=== PATIENT | male | born 1950 | race Two or more races ===

== ENCOUNTER 2019-05-06 11:01 | Inpatient (IN) | payer MEDICARE ==
[~2019-05-06] VITALS: Ht 203.2 cm; Wt 81.6 kg
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
[2019-05-06 11:10] VITALS: BP 149/101
[2019-05-06] MEDS ORDERED: Morphine Sulfate 4mg/ml Inj (IV USE ONLY) IVP ONE (11:30)
[2019-05-06] MEDS ORDERED: Bacitracin Oint UD TOPIC ONE (11:30)
[2019-05-06 12:04] LABS: BASOPHILS % (AUTO) 0.7 % (0.0-2.0); EOSINOPHILS % (AUTO) 0.1 % (0.0-3.0); HEMATOCRIT 45.2 % (42.0-52.0); HEMOGLOBIN 14.8 G/DL (14.2-18.0); LYMPHOCYTES % (AUTO) 17.6 % (20.0-45.0); MEAN CORPUSCULAR VOLUME 81 FL (80-99); NEUTROPHILS % (AUTO) 75.7 % (45.0-75.0); PLATELET COUNT 448 K/UL (150-450); RED BLOOD COUNT 5.59 M/UL (4.70-6.10); RED CELL DISTRIBUTION WIDTH 14.5 % (11.6-14.8); WHITE BLOOD COUNT 10.2 K/UL (4.8-10.8)
--- NOTE | 2019-05-06 12:10 | NUR ---
ED Nurse Note: PT UNABLE TO GIVE URINE SAMPLE. PT ROVIDED WITH WATER. DR SHOAIB PRINCE WITH ORAL INTAKE.
[2019-05-06 12:14] LABS: ANION GAP 12 mmol/L (5-15); BLOOD UREA NITROGEN 21 mg/dL (7-18); CALCIUM 9.7 MG/DL (8.5-10.1); CARBON DIOXIDE 23 MMOL/L (21-32); CHLORIDE 97 MMOL/L (98-107); CREATININE 1.3 MG/DL (0.55-1.30); POTASSIUM 3.8 MMOL/L (3.5-5.1); SODIUM 132 MMOL/L (136-145)
[2019-05-06 12:28] LABS: ALANINE AMINOTRANSFERASE 37 U/L (12-78); ALBUMIN 3.9 G/DL (3.4-5.0); ALBUMIN/GLOBULIN RATIO 0.9 (1.0-2.7); ALKALINE PHOSPHATASE 142 U/L (46-116); ASPARTATE AMINO TRANSFERASE 28 U/L (15-37); BILIRUBIN,TOTAL 0.4 MG/DL (0.2-1.0); CREATINE KINASE 156 U/L (26-308)
--- NOTE | 2019-05-06 12:58 | NUR ---
ED Nurse Note: PT REFSUED CATHETER FOR URINE. STILL NOT ABLE TO PROVIDE SAMPLE AT THIS TIME.
--- NOTE | 2019-05-06 13:00 | NUR ---
ED Nurse Note: DR CRAMER OKAY TO BRING PT UP ON TELEMETRY WITHOUT URINE SPECIMEN.
[2019-05-06] MEDS: Morphine Sulfate 4mg/ml Inj (IV USE ONLY) IVP PRN ×3 (13:05→21:24)
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
[2019-05-06 13:10] VITALS: BP 145/90
[2019-05-06] MEDS ORDERED: Albuterol/Ipratropium 3ml neb HHN PRN (14:00)
[2019-05-06] MEDS ORDERED: Mylanta II UD 30ml ORAL PRN (14:00)
[2019-05-06] MEDS ORDERED: Morphine Sulfate 2mg/ml Inj(IV/IM USE ONLY) IVP PRN (14:00)
[2019-05-06] MEDS ORDERED: Nitroglycerin Subl 0.4mg tab SL PRN (14:00)
[2019-05-06] MEDS ORDERED: LORazepam Inj 2mg/ml 1ml IV PRN (14:00)
[2019-05-06] MEDS ORDERED: Miralax 17gm pkt ORAL PRN (14:00)
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
[2019-05-06] MEDS ORDERED: OXYCONTIN80 MG ORAL (14:09)
[2019-05-06] MEDS ORDERED: AMBIEN5 MG ORAL (14:09)
[2019-05-06] MEDS ORDERED: NEURONTIN100 MG ORAL (14:09)
--- NOTE | 2019-05-06 14:25 | NUR ---
ED Nurse Note: REPORT GIVEN TO PORSCHE EGAN RN OF TELEMETRY UNIT.
[2019-05-06] MEDS ORDERED: Hydromorphone 0.5mg/0.5ml inj IVP ONE (14:45)
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
--- NOTE | 2019-05-06 17:00 | NUR ---
NURSE NOTES: Pt c/o pain to Lt shoulder,Morphin Sulfate 4 mg IVP given,will continue to monitor pt.
--- NOTE | 2019-05-06 17:30 | NUR ---
NURSE NOTES: Pt c/o nausea,pt attempting to vomit,but only saliva came out.Dinner tray served .pt ate well.
--- NOTE | 2019-05-06 18:40 | History & Physical ---
History and Physical History & Physicial Dictated for Int Med-Dr Jackson no. [id number]. Nathan Hoffmann MD May 06, 2019 18:40
--- NOTE | 2019-05-06 19:15 | NUR ---
HAND-OFF: Report given to Ryan Oliva RN.Pt resting quietly in bed watching TV,no distress presented.
--- NOTE | 2019-05-06 19:18 | NUR ---
NURSE NOTES: Received report. Patient is awake, and alert with no distress/SOB noted at this time. Left hand IV site is, dry and intact. Denies pain at this time. Bed in low position and locked, Call light within reach. Will continue to monitor and follow plan of care.
[2019-05-06] MEDS: Heparin 5000 units/ml inj SUBQ SCH (21:24)
[2019-05-06 22:31] LABS: APPEARANCE,URINE SLIGHTLY CLOUDY; BILIRUBIN, URINE NEGATIVE (NEGATIVE); GLUCOSE, URINE (UA) NEGATIVE (NEGATIVE); KETONES,URINE 1+ (NEGATIVE); LEUKOCYTE ESTERASE ,URINE NEGATIVE (NEGATIVE); NITRITE,URINE NEGATIVE (NEGATIVE); PH,URINE 6 (4.5-8.0); PROTEIN,URINE 2+ (NEGATIVE); UROBILINOGEN,URINE NORMAL MG/DL (0.0-1.0)
[2019-05-06 22:33] LABS: COLOR,URINE YELLOW
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
[2019-05-07] VITALS: BP 131/68
[2019-05-07] MEDS: Morphine Sulfate 4mg/ml Inj (IV USE ONLY) IVP PRN ×4 (01:24→15:35)
[2019-05-07 04:00] VITALS: BP 134/76
--- NOTE | 2019-05-07 07:38 | NUR ---
HAND-OFF: Report given to Destinee BAIRES.
--- NOTE | 2019-05-07 07:40 | NUR ---
NURSE NOTES: Received report from DEQUAN Mishra. Pt in bed, awake, talkative, getting labs drawn by obstetrics nurse, no complaints of pain, no apparent distress, call light within reach.
[2019-05-07 08:00] VITALS: BP 148/89
[2019-05-07 08:19] LABS: BASOPHILS % (AUTO) 0.7 % (0.0-2.0); HEMOGLOBIN 13.8 G/DL (14.2-18.0); LYMPHOCYTES % (AUTO) 23.1 % (20.0-45.0); MEAN CORPUSCULAR VOLUME 82 FL (80-99); MONOCYTES % (AUTO) 8.3 % (1.0-10.0); NEUTROPHILS % (AUTO) 67.9 % (45.0-75.0); PLATELET COUNT 369 K/UL (150-450); RED BLOOD COUNT 5.02 M/UL (4.70-6.10); RED CELL DISTRIBUTION WIDTH 14.5 % (11.6-14.8); WHITE BLOOD COUNT 11.2 K/UL (4.8-10.8)
[2019-05-07 08:46] LABS: ALANINE AMINOTRANSFERASE 30 U/L (12-78); ALBUMIN 3.6 G/DL (3.4-5.0); ALBUMIN/GLOBULIN RATIO 0.8 (1.0-2.7); ALKALINE PHOSPHATASE 134 U/L (46-116); ANION GAP 11 mmol/L (5-15); ASPARTATE AMINO TRANSFERASE 27 U/L (15-37); BILIRUBIN,TOTAL 0.5 MG/DL (0.2-1.0); BLOOD UREA NITROGEN 28 mg/dL (7-18); CALCIUM 9.3 MG/DL (8.5-10.1); CARBON DIOXIDE 22 MMOL/L (21-32); CHLORIDE 99 MMOL/L (98-107); CHOLESTEROL 252 MG/DL (< 200); HDL CHOLESTEROL 51 MG/DL (40-60); POTASSIUM 4.4 MMOL/L (3.5-5.1); SODIUM 132 MMOL/L (136-145); TRIGLYCERIDES 146 MG/DL (30-150)
[2019-05-07] MEDS: Heparin 5000 units/ml inj SUBQ SCH ×2 (09:59→21:35)
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
[2019-05-07 12:00] VITALS: BP 126/97
--- NOTE | 2019-05-07 12:50 | NUR ---
NURSE NOTES: Notified Dr. Nilda Jimenez 132, no new orders
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
[2019-05-07] MEDS: oxyCONTIN 20mg tab ORAL SCH ×2 (14:02→21:30)
--- NOTE | 2019-05-07 14:26 | Internal Med Progress Note ---
Subjective Physician Name Scooby Jackson Attending Physician Scooby Jackson MD Current Medications Medications (Trade) Dose Ordered Sig/Jesse Route PRN Reason Start Time Stop Time Status Last Admin Dose Admin Acetaminophen (Tylenol) 650 mg Q4H PRN ORAL fever 05/06/19 14:00 06/05/19 13:59 05/07/19 11:37 Al Hydroxide/Mg Hydroxide (Mylanta II) 30 ml Q6H PRN ORAL dyspepsia 05/06/19 14:00 06/05/19 13:59 Albuterol/ Ipratropium (Albuterol/ Ipratropium) 3 ml Q4H PRN HHN Shortness of Breath 05/06/19 14:00 05/11/19 13:59 Clonidine HCl (Catapres Tab) 0.1 mg Q4H PRN ORAL For High Blood Pressure 05/06/19 14:00 06/05/19 13:59 Dextrose (Dextrose 50%) 25 ml Q30M PRN IV Hypoglycemia 05/06/19 14:00 06/05/19 13:59 Dextrose (Dextrose 50%) 50 ml Q30M PRN IV Hypoglycemia 05/06/19 14:00 06/05/19 13:59 Heparin Sodium (Porcine) (Heparin 5000 units/ml) 5,000 units EVERY 12 HOURS SUBQ 05/06/19 21:00 06/05/19 20:59 05/07/19 09:59 Lorazepam (Ativan 2mg/ml 1ml) 0.5 mg Q4H PRN IV For Anxiety 05/06/19 14:00 05/13/19 13:59 Mirtazapine (Remeron) 7.5 mg BEDTIME ORAL 05/07/19 21:00 06/06/19 20:59 Morphine Sulfate (Morphine Sulfate) 1 mg Q4H PRN IVP For Pain 7-10 05/06/19 14:00 05/13/19 13:59 Morphine Sulfate (Morphine Sulfate) 4 mg Q4H PRN IVP For Pain 05/06/19 13:00 05/13/19 12:59 05/07/19 09:58 Nitroglycerin (Ntg) 0.4 mg Q5M X 3 DOSES PRN SL Prn Chest Pain 05/06/19 14:00 06/05/19 13:59 Ondansetron HCl (Zofran) 4 mg Q6H PRN IVP Nausea & Vomiting 05/06/19 14:00 06/05/19 13:59 Oxycodone HCl (OxyCONTIN) 80 mg EVERY 8 HOURS ORAL 05/07/19 14:00 05/14/19 13:59 05/07/19 14:02 Polyethylene Glycol (Miralax) 17 gm HSPRN PRN ORAL Constipation 05/06/19 14:00 06/05/19 13:59 Temazepam (Restoril) 15 mg HSPRN PRN ORAL Insomnia 05/06/19 14:00 05/13/19 13:59 05/06/19 22:49 Allergies: Coded Allergies: No Known Allergies (Unverified , 05/06/19) Subjective Awake, alert, responsive, no acute distress, complained about chest wall pain, denies any shortness of breath. Objective Last Vital Signs Date Time Temp Pulse Resp B/P (MAP) Pulse Ox O2 Delivery O2 Flow Rate FiO2 05/07/19 12:07 98.6 05/07/19 12:00 94 18 126/97 (107) 96 05/07/19 09:00 Room Air 05/07/19 07:03 21 Laboratory Tests Test 05/06/19 16:45 05/06/19 22:00 05/07/19 07:20 Hepatitis B Surface Antibody, Quant <3.1 mIU/mL (Immunity>9.9) Hepatitis C Antibody 0.3 s/co ratio (0.0-0.9) Urine Color Yellow Urine Appearance Slightly cloudy Urine pH 6 (4.5-8.0) Urine Specific Hunt 1.020 (1.005-1.035) Urine Protein 2+ (NEGATIVE) H Urine Glucose (UA) Negative (NEGATIVE) Urine Ketones 1+ (NEGATIVE) H Urine Blood 1+ (NEGATIVE) H Urine Nitrite Negative (NEGATIVE) Urine Bilirubin Negative (NEGATIVE) Urine Urobilinogen Normal MG/DL (0.0-1.0) Urine Leukocyte Esterase Negative (NEGATIVE) Urine RBC 0-2 /HPF (0 - 0) H Urine WBC 0-2 /HPF (0 - 0) Urine Squamous Epithelial Cells None /LPF (NONE/OCC) Urine Bacteria Few /HPF (NONE) Urine Hyaline Casts 5-10 /LPF (NONE) H Urine Opiates Screen Positive (NEGATIVE) H Urine Barbiturates Screen Negative (NEGATIVE) Phencyclidine (PCP) Screen Negative (NEGATIVE) Urine Amphetamines Screen Negative (NEGATIVE) Urine Benzodiazepines Screen Negative (NEGATIVE) Urine Cocaine Screen Negative (NEGATIVE) Urine Marijuana (THC) Screen Negative (NEGATIVE) White Blood Count 11.2 K/UL (4.8-10.8) H Red Blood Count 5.02 M/UL (4.70-6.10) Hemoglobin 13.8 G/DL (14.2-18.0) L Hematocrit 41.0 % (42.0-52.0) L Mean Corpuscular Volume 82 FL (80-99) Mean Corpuscular Hemoglobin 27.4 PG (27.0-31.0) Mean Corpuscular Hemoglobin Concent 33.6 G/DL (32.0-36.0) Red Cell Distribution Width 14.5 % (11.6-14.8) Platelet Count 369 K/UL (150-450) Mean Platelet Volume 5.4 FL (6.5-10.1) L Neutrophils (%) (Auto) 67.9 % (45.0-75.0) Lymphocytes (%) (Auto) 23.1 % (20.0-45.0) Monocytes (%) (Auto) 8.3 % (1.0-10.0) Eosinophils (%) (Auto) 0.0 % (0.0-3.0) Basophils (%) (Auto) 0.7 % (0.0-2.0) Prothrombin Time 10.7 SEC (9.30-11.50) Prothromb Time International Ratio 1.0 (0.9-1.1) Activated Partial Thromboplast Time 27 SEC (23-33) Sodium Level 132 MMOL/L (136-145) L Potassium Level 4.4 MMOL/L (3.5-5.1) Chloride Level 99 MMOL/L (98-107) Carbon Dioxide Level 22 MMOL/L (21-32) Anion Gap 11 mmol/L (5-15) Blood Urea Nitrogen 28 mg/dL (7-18) H Creatinine 1.0 MG/DL (0.55-1.30) Estimat Glomerular Filtration Rate > 60 mL/min (>60) Glucose Level 170 MG/DL (74-106) H Calcium Level 9.3 MG/DL (8.5-10.1) Total Bilirubin 0.5 MG/DL (0.2-1.0) Aspartate Amino Transf (AST/SGOT) 27 U/L (15-37) Alanine Aminotransferase (ALT/SGPT) 30 U/L (12-78) Alkaline Phosphatase 134 U/L (46-116) H Total Protein 7.9 G/DL (6.4-8.2) Albumin 3.6 G/DL (3.4-5.0) Globulin 4.3 g/dL Albumin/Globulin Ratio 0.8 (1.0-2.7) L Triglycerides Level 146 MG/DL (30-150) Cholesterol Level 252 MG/DL (< 200) H LDL Cholesterol 171 mg/dL (<100) H HDL Cholesterol 51 MG/DL (40-60) Cholesterol/HDL Ratio 4.9 (3.3-4.4) H Thyroid Stimulating Hormone (TSH) 1.522 uiU/mL (0.358-3.740) Intake and Output 05/06/19 05/07/19 19:00 07:00 Intake Total 580 ml Output Total 600 ml Balance 580 ml -600 ml Intake Oral 580 ml Output Urine Total 600 ml Objective General: No acute distress, awake and alert HEENT: NCAT, sclera anicteric, PERRL, EOMI. Neck: Supple, no significant jugular venous distention, Lungs: Good inspiratory effort, decreased air at the bases, ecchymosis on the chest wall was noted, tender to touch over the chest wall, no Wheeze or Rales. Heart: Regular rate and rhythm, normal S1/S2, no murmur. Abdomen: soft, nontender, nondistended. Normoactive bowel sounds. / Rectal: Refused and deferred. Extremities: No Cyanosis , clubbing or edema, varicose veins bilateral lower extremity. Neuro: A&O x 3, Able to move all extremities Skin: warm, no rash. Psych: Normal mood and affect Assessment/Plan Assessment/Plan 1. Syncopal episode. 2. Hypertension 3. Chronic low back pain, TREATMENT: Monitor laboratory Pain control Monitor blood pressure closely Follow-up with cardiology recommendation PT mobility Out of bed to chair CODE STATUS full code DVT prophylaxis with heparin subcu Scooby Jackson MD May 07, 2019 14:26
[2019-05-07 16:00] VITALS: BP 124/80
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
--- NOTE | 2019-05-07 17:46 | Diagnostic Imaging Report ---
Indication: Dyspnea Comparison: None A single view chest radiograph was obtained. Findings: Ill-defined density at the right lung base may be infiltrate or atelectasis. Small pleural effusion is also suspected. Heart is enlarged. Bones are unremarkable. IMPRESSION: Infiltrate versus atelectasis right lung base. Small right pleural effusion also suspected.
--- NOTE | 2019-05-07 17:47 | Cardiology Report ---
APPROVED REPORT EXAM: Two-dimensional and M-mode echocardiogram with Doppler and color Doppler. INDICATION LV FUNCTION M-Mode DIMENSIONS IVSd1.2 (0.7-1.1cm)Left Atrium (MM)3.8 (1.6-4.0cm) LVDd3.9 (3.5-5.6cm)Aortic Root4.1 (2.0-3.7cm) PWd1.2 (0.7-1.1cm)Aortic Cusp Exc.1.6 (1.5-2.0cm) IVSs1.9 cm LVDs2.5 (2.5-4.0cm) PWs1.4 cm Other Information Quality : Poor Technically limited study due to body habitus. Technically difficult study due to poor acoustical windows. Normal left ventricular chamber size, systolic function and wall motion to extent visualized. Left ventricular ejection fraction estimated to be 55 %. Study quality precludes accurate assessment of regional wall motion. No evidence of left ventricular hypertrophy . No evidence of pericardial effusion. Mild left atrial enlargement . Right cardiac chamber sizes are within normal limits. Aortic valve calcification with decreased cusp excursion c/w aortic stenosis. Mildly thickened mitral valve leaflets with normal excursion. Mild mitral annulus and aortic root calcification. Pulmonic valve not well visualized. IVC in normal size with physiologic collapse . A color flow and spectral Doppler study was performed and revealed: No aortic insufficiency . Mitral diastolic velocities suggest reduced left ventricular relaxation c/w mild LV diastolic dysfunction (Grade I ) Trace mitral regurgitation. Trace tricuspid regurgitation. Tricuspid systolic velocities suggests peak right ventricular systolic pressure of 15mmHg.
--- NOTE | 2019-05-07 18:14 | NUR ---
NURSE NOTES: Pt asking for Ambien to sleep tonight. Notified Dr. Jackson of pt's request
--- NOTE | 2019-05-07 19:25 | NUR ---
HAND-OFF: Report given to DEQUAN Mishra.
--- NOTE | 2019-05-07 19:26 | NUR ---
NURSE NOTES: Received report from Yolanda. Patient is awake, and alert with no distress/SOB noted at this time. Left hand IV site is, dry and intact. Denies pain at this time. Bed in low position and locked, Call light within reach. Will continue to monitor and follow plan of care.
[2019-05-07] MEDS ORDERED: Zolpidem 5mg tab ORAL PRN (19:30)
[2019-05-07 20:00] VITALS: BP 124/88
--- NOTE | 2019-05-07 20:21 | NUR ---
Per request DMV form(lapse of consciousness) completed (for yesterdays order) and faxed to [phone].
[2019-05-08] VITALS: BP 134/86
[2019-05-08] MEDS: Morphine Sulfate 4mg/ml Inj (IV USE ONLY) IVP PRN
[2019-05-08 04:00] VITALS: BP 127/56
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
[2019-05-08] MEDS: oxyCONTIN 20mg tab ORAL SCH ×3 (06:12→22:10)
--- NOTE | 2019-05-08 07:28 | NUR ---
HAND-OFF: Report given to James BAIRES.
--- NOTE | 2019-05-08 07:30 | NUR ---
NURSE NOTES: Received report from Tad /RN, Patient awake and alert, eating breakfast on bed, No acute distress/SOB noted at this time. IV on left Hand 20 gauge, patent, no bleeding or infiltration noted. Bed in low position and locked. Call light within reach. Will continue plan of care.
[2019-05-08 08:00] VITALS: BP 124/83
[2019-05-08] MEDS: Heparin 5000 units/ml inj SUBQ SCH ×2 (08:13→20:47)
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
--- NOTE | 2019-05-08 08:57 | NUR ---
Patient transferred to [facility], Room number 320-2, Report given to Lynda/RN, Patient is in stable condition, No acute distress noted. Endorsed plan of care.
[2019-05-08] MEDS ORDERED: Nitroglycerin Subl 0.4mg tab SL PRN (09:00)
[2019-05-08] MEDS ORDERED: Morphine Sulfate 4mg/ml Inj (IV USE ONLY) IVP PRN (09:00)
--- NOTE | 2019-05-08 09:24 | Diagnostic Imaging Report ---
EXAM: XR Chest, 1 View CLINICAL HISTORY: COPD TECHNIQUE: Frontal view of the chest. COMPARISON: Chest x-ray dated 05/06/19. FINDINGS: Lungs: Hyperexpanded lungs with emphysematous changes. Linear scarring versus atelectasis in the right lower lung, not significantly changed. Pleural space: Unremarkable. The costophrenic angles are sharp. No visible pneumothorax. Heart: Unremarkable. No cardiomegaly. Mediastinum: Large hiatal hernia. Bones/joints: Unremarkable. IMPRESSION: 1. Large hiatal hernia. 2. Hyperexpanded lungs with emphysematous changes. 3. Linear scarring versus atelectasis in the right lower lung, not significantly changed.
[2019-05-08] MEDS ORDERED: LORazepam Inj 2mg/ml 1ml IV PRN (10:00)
[2019-05-08] MEDS ORDERED: Albuterol/Ipratropium 3ml neb HHN PRN (10:00)
[2019-05-08] MEDS ORDERED: Mylanta II UD 30ml ORAL PRN (10:00)
[2019-05-08] MEDS: Morphine Sulfate 2mg/ml Inj(IV/IM USE ONLY) IVP PRN ×3 (11:29→20:59)
[2019-05-08 12:00] VITALS: BP 120/78
[2019-05-08] MEDS ORDERED: Miralax 17gm pkt ORAL PRN (14:00)
[2019-05-08 16:00] VITALS: BP 142/89
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
[2019-05-08] MEDS ORDERED: Zolpidem 5mg tab ORAL PRN (19:30)
--- NOTE | 2019-05-08 19:37 | NUR ---
HAND-OFF: Report given to Snehal BAIRES. Patient is in stable condition.
--- NOTE | 2019-05-08 19:40 | NUR ---
NURSE NOTES: Received report from DEQUAN Howell. Patient in stable condition. Bed in low position, locked, side rails up x2, call light within reach. Discussed pain control plan with patient. Saline lock in R wrist, intact. Will continue to monitor.
[2019-05-08 20:00] VITALS: BP 142/92
[2019-05-09] VITALS (7 sets, daily range): BP systolic 124–145; BP diastolic 70–92
[2019-05-09] MEDS: Morphine Sulfate 2mg/ml Inj(IV/IM USE ONLY) IVP PRN ×4 (01:58→23:01)
--- NOTE | 2019-05-09 04:26 | NUR ---
NURSE NOTES: States difficult time sleeping, dozes on and off. Repositioned for comfort. Denies anxiety at this time. Will continue to monitor. See eMAR
[2019-05-09] MEDS: oxyCONTIN 20mg tab ORAL SCH ×3 (06:12→20:04)
--- NOTE | 2019-05-09 07:15 | NUR ---
HAND-OFF: Report given to DEQUAN Howell.
--- NOTE | 2019-05-09 08:27 | NUR ---
NURSE NOTES: Received report from Snehal BAIRES. Patient is awake alert and oriented x4, no acute distress noted but patient was reporting pain. Medicated per order. Will reassess. IV intact, asymptomatic. Patient updated on plan of care for the day. Side rails upx3, bed low and locked, call light in reach. Will continue to monitor.
[2019-05-09] MEDS: Heparin 5000 units/ml inj SUBQ SCH ×2 (09:17→20:08)
--- NOTE | 2019-05-09 13:03 | NUR ---
NURSE NOTES: Patient reports he is very weak and feels "clammy", patient is slightly cool to touch in distal upper extremities, patient does not appear very anxious. Dr. Tucker evaluated patient at the bedside and ordered take take the patient's blood pressure. Blood pressure taken: 118/75 with HR 100. MD ordered to obtain set of orthostatic vital signs and report results to him. Will follow through as ordered.
--- NOTE | 2019-05-09 14:30 | NUR ---
NURSE NOTES: Orthostatic VS: supine: BP 121/77, HR 99 sitting: BP 124/78, HR 105 standing: BP 121/79, HR 111
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
--- NOTE | 2019-05-09 15:02 | NUR ---
NURSE NOTES: Informed Dr. Munguia patient is still experiencing severe pain despite scheduled and PRN pain medications. MD gave new orders, orders entered.
--- NOTE | 2019-05-09 15:41 | NUR ---
NURSE NOTES: Patient reporting intermittent chest pain rated 8/10 and "clamminess" in extremities. Patient appears calm with mild intermittent anxiety. Called and reported to Dr. Garrett MD ordered for a STAT EKG and troponin x1. Orders entered, will carry out and continue to monitor. Addendum: 05/09/19 at 1909 by Lynda Singh RN Add: Also informed Dr. Tucker of patient's orthostatic VS.
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
--- NOTE | 2019-05-09 17:16 | NUR ---
NURSE NOTES: Dr. Tucker contacted and informed of patient's EKG and troponin result, MD gave no further orders. Patient appears to be calming down, medicated patient for pain. VS stable at this time. Will continue to monitor.
--- NOTE | 2019-05-09 19:39 | NUR ---
HAND-OFF: Report given to Arleen BAIRES. Patient is in stable condition.
--- NOTE | 2019-05-09 19:40 | NUR ---
NURSE NOTES: Received report & pt from DEQUAN Howell, Pt lying in bed, a&ox4, in room air. No s/s o acute distress & c/o 8/10 pain at this time. Will give PRN pain med when due& pt verbalized understanding. IV site intact & S/L'd. Bed in lowest position, call light within reach. Will continue to monitor.
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
[2019-05-10] MEDS: oxyCONTIN 20mg tab ORAL SCH ×4 (02:10→20:04)
[2019-05-10 04:00] VITALS: BP 112/73
[2019-05-10] MEDS: Morphine Sulfate 2mg/ml Inj(IV/IM USE ONLY) IVP PRN ×4 (05:00→23:00)
--- NOTE | 2019-05-10 07:21 | NUR ---
NURSE NOTES: Received report from DEQUAN Bacon. Rounding done with outgoing nurse. Patient is asleep. Bed in lowest position, call light within reach. Will continue to monitor.
--- NOTE | 2019-05-10 07:32 | NUR ---
HAND-OFF: Report given to DEQUAN Blas. Rounds done. Pt instable condition.
[2019-05-10 08:00] VITALS: BP 134/92
[2019-05-10] MEDS: Heparin 5000 units/ml inj SUBQ SCH ×2 (09:05→20:05)
[2019-05-10 12:00] VITALS: BP 130/84
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
--- NOTE | 2019-05-10 14:17 | NUR ---
*-* MEDICARE APPEAL *-* CASE MANAGEMENT HAS CALLED IN THE MEDICARE APPEAL ON BEHALF OF PATIENT MEDICARE APPEAL P:[phone] [id number]
[2019-05-10 16:00] VITALS: BP 126/84
--- NOTE | 2019-05-10 17:10 | NUR ---
CASE MANAGEMENT: REVIEW 05/10/2019 SI: SYNCOPE T 99.7 HR 102 RR 16 B/P 130/84 SATS 96% ON RA NO LABS TODAY IS: REMERON PO QHS OXYCODONE PO Q6H : TO TELEMETRY PLAN: TIA
--- NOTE | 2019-05-10 19:24 | NUR ---
HAND-OFF: Report given to DEQUAN Bacon. Patient is stable.
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
--- NOTE | 2019-05-10 19:30 | NUR ---
NURSE NOTES: Received report & pt from DEQUAN Blas. Pt lying in bed, a&ox4, in room air. No s/s o acute distress & c/o 9/10 pain at this time. Scheduled oxycontin due @ 1999 for pain, pt made aware & pt verbalized understanding. Pt would like to wait for oxycontin. IV site intact & S/L'd. Bed in lowest position, call light within reach. Will continue to monitor.
[2019-05-10 20:00] VITALS: BP 123/88
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
[2019-05-11] VITALS: BP 135/81
[2019-05-11] MEDS: oxyCONTIN 20mg tab ORAL SCH ×3 (01:56→14:00)
[2019-05-11 04:00] VITALS: BP 132/84
[2019-05-11] MEDS: Morphine Sulfate 2mg/ml Inj(IV/IM USE ONLY) IVP PRN ×2 (05:12→11:24)
--- NOTE | 2019-05-11 07:30 | NUR ---
NURSE NOTES: awake/alert. pain scale 9/10. in no acute distress.
--- NOTE | 2019-05-11 07:30 | NUR ---
HAND-OFF: Report given to DEQUAN Machado. Pt in stable condition. Rounds done.
[2019-05-11 08:00] VITALS: BP 145/89
[2019-05-11] MEDS: Heparin 5000 units/ml inj SUBQ SCH (08:39)
--- NOTE | 2019-05-11 11:04 | Diagnostic Imaging Report ---
APPROVED REPORT CPT Code: 23694 Vascular Symptoms Syncope CVA/TIA: Doppler Spectral Velocity Analysis RightLeft arteries. A high resistive common carotid artery waveform is loss of diastolic flow indicates advanced occlusive distal disease, increased resistance to circulation. The Doppler spectral flow analysis indicates the degree of stenosis is mild (30-40%) in the internal carotid artery, and (30%) in the proximal external carotid artery. arteries. A high resistive common carotid artery waveform is loss of diastolic flow indicates advanced occlusive distal disease, increased resistance to circulation. The Doppler spectral flow analysis indicates the degree of stenosis is mild (30-40%) in the internal carotid artery, and (30%) in the proximal external carotid artery. VERTEBRAL/SUBCLAVIAN- The vertebral and subclavian arteries are within normal limits, bilaterally.
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
--- NOTE | 2019-05-11 11:38 | NUR ---
DISCHARGE PLANNING: NOTE CM ORDER NOTED. CLINICALS FAXED TO [facility]. SARI MADE THIS CM AWARE THAT PATIENT IS IN SERVICE WITH ANOTHER HOME HEALTH AGENCY ([facility]). CLINICALS FAXED TO: [facility] T: [phone] F:[phone] [facility] THEY ARE WILLING TO CONTINUE SEEING THE PATIENT ON DC.
[2019-05-11 12:00] VITALS: BP 122/70
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
--- NOTE | 2019-05-11 14:33 | Cardiology Report ---
APPROVED REPORT EKG Measurement Heart [id number] Sinus rhythm with marked sinus arrhythmia Cannot rule out Anteroseptal infarct, age undetermined Abnormal ECG
[2019-05-11 15:24] VITALS: BP 169/84
--- NOTE | 2019-05-11 15:39 | NUR ---
NURSE NOTES: discharged home via ambulance in stable condition. dc instructions given.
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
--- NOTE | 2019-05-12 21:11 | Cardiology Report ---
APPROVED REPORT EKG Measurement Heart [id number] Sinus tachycardia Inferior infarct, age undetermined Cannot rule out Anteroseptal infarct, age undetermined Abnormal ECG
== END 2019-05-11 15:39 | disposition home health service (06) | DRG 72 ==
LOC: EDBD 11:01 → EMR 11:40 → 2E 11:45 → EDBEDREQ 12:00 → 2E 20:09 → 3E 05-08 09:02
DX: G93.40 Encephalopathy, unspecified (principal); R55 Syncope and collapse; S20.219A Contusion of unspecified front wall of thorax, initial encounter; V47.5XXA Car driver injured in collision with fixed or stationary object in traffic accident, initial encounter; Y92.414 Local residential or business street as the place of occurrence of the external cause; I10 Essential (primary) hypertension; G89.4 Chronic pain syndrome; M54.5 Low back pain; Z86.74 Personal history of sudden cardiac arrest
CPT/HCPCS: 36415; 70450; 71045; 80053; 80061; 80307; 81003; 82550; 83880; 84443; 84484; 85025; 85610; 85730; 86703; 86803; 87517; 93005; 93306; 93880; 94664; 96372; 96374; 96375; 99285; J2405